=== PATIENT | male | born 1945 | race Caucasian/White ===

== ENCOUNTER 2017-06-27 09:33 | Day surgery (SDC) | payer MEDICARE, OTHER ==
[~2017-06-27] VITALS: Ht 175.3 cm; Wt 90.0 kg
[~2017-06-27 09:33] MED LIST: Hair, Skin & N1 EACH
== END 2017-06-27 12:05 | disposition home or self-care (01) ==
LOC: ORSCSDS 09:33
PROVIDERS: Internal Medicine Gastroenterology
PROC: 0DBN8ZX Excision of Sigmoid Colon, Via Natural or Artificial Opening Endoscopic, Diagnostic (ICD-10-PCS; principal; 2017-06-27 11:00)
PROC: 0DBL8ZX Excision of Transverse Colon, Via Natural or Artificial Opening Endoscopic, Diagnostic (ICD-10-PCS; principal; 2017-06-27 11:00)
PROC: 0DBK8ZX Excision of Ascending Colon, Via Natural or Artificial Opening Endoscopic, Diagnostic (ICD-10-PCS; principal; 2017-06-27 11:00)
DX: R19.4 Change in bowel habit (principal); D12.3 Benign neoplasm of transverse colon; D12.2 Benign neoplasm of ascending colon; D12.5 Benign neoplasm of sigmoid colon; K64.8 Other hemorrhoids; I49.5 Sick sinus syndrome; G47.33 Obstructive sleep apnea (adult) (pediatric); Z87.891 Personal history of nicotine dependence
CPT/HCPCS: 88305; J3010; J7120

== ENCOUNTER 2020-04-23 12:39 | Day surgery (SDC) | payer MEDICARE, OTHER ==
[~2020-04-23] VITALS: Ht 177.8 cm; Wt 92.8 kg
--- NOTE | 2020-04-23 13:08 | NUR ---
04/23/20 1308 Rosa Carlos 1 TRY RIGHT HAND VALVE 2 TRY RIGHT WRIST MISS
[2020-04-23] MEDS ORDERED: VIT1CAPS12 (13:10)
[2020-04-23] MEDS ORDERED: MAGCHL64ER (13:10)
[2020-04-23] MEDS ORDERED: BUPR75 (13:10)
[2020-04-23] MEDS ORDERED: ZINC LOZENGES (13:10)
[2020-04-23] MEDS ORDERED: MELA3 (13:10)
[2020-04-23] MEDS ORDERED: Calcium + Vita1 EACH (13:11)
== END 2020-04-23 14:55 | disposition home or self-care (01) ==
LOC: ORSCSDS 12:39
PROVIDERS: Internal Medicine Gastroenterology
PROC: 0DBM8ZX Excision of Descending Colon, Via Natural or Artificial Opening Endoscopic, Diagnostic (ICD-10-PCS; principal; 2020-04-23 14:15)
PROC: 0DBK8ZX Excision of Ascending Colon, Via Natural or Artificial Opening Endoscopic, Diagnostic (ICD-10-PCS; principal; 2020-04-23 14:15)
PROC: 0DBN8ZX Excision of Sigmoid Colon, Via Natural or Artificial Opening Endoscopic, Diagnostic (ICD-10-PCS; principal; 2020-04-23 14:15)
DX: K62.5 Hemorrhage of anus and rectum (principal); Z86.010 Personal history of colon polyps; D12.2 Benign neoplasm of ascending colon; D12.4 Benign neoplasm of descending colon; D12.5 Benign neoplasm of sigmoid colon; G47.33 Obstructive sleep apnea (adult) (pediatric); K57.30 Diverticulosis of large intestine without perforation or abscess without bleeding; K64.8 Other hemorrhoids
CPT/HCPCS: 88305; J2704; J7120

== ENCOUNTER → 2020-05-26 | Outpatient (CLI) | payer MEDICARE, OTHER ==
[~2020-05-26] MED LIST changes: +BUPR75; +Calcium + Vita1 EACH; +MAGCHL64ER; +MELA3; +VIT1CAPS12; +ZINC LOZENGES
== END ==
LOC: LAB SHORT 12:35 → PLD 12:35
DX: L82.1 Other seborrheic keratosis (principal)
CPT/HCPCS: 88305

== ENCOUNTER → 2020-11-30 | Outpatient (CLI) | payer MEDICARE, OTHER | LOC: LAB 11:12 → LAB SHORT 11:12 | DX: D48.5 Neoplasm of uncertain behavior of skin (principal); D22.9 Melanocytic nevi, unspecified; Z88.8 Allergy status to other drugs, medicaments and biological substances | CPT/HCPCS: 88305 ==

== ENCOUNTER → 2021-07-18 | Outpatient (CLI) | payer MEDICARE, OTHER | END | disposition home or self-care (01) | LOC: LAB SHORT 13:20 | DX: Z48.817 Encounter for surgical aftercare following surgery on the skin and subcutaneous tissue (principal); A49.9 Bacterial infection, unspecified | CPT/HCPCS: 87070; 87205 ==

== ENCOUNTER → 2023-08-10 | Outpatient (CLI) | payer MEDICARE, OTHER ==
[~2023-08-10] MED LIST changes: +SULTRIDS PO
[2023-08-10 13:13] LABS: BASOPHILS ABSOLUTE AUTO 0.06 K/mm3 (0.00-0.23); BASOPHILS PERCENT AUTO 1 % (0-2); EOSINOPHILS ABSOLUTE AUTO 0.14 K/mm3 (0.00-0.68); EOSINOPHILS PERCENT AUTO 2 % (0-6); Hematocrit 39.6 % (37.0-53.0); Hemoglobin 13.3 g/dL (13.5-17.5); IMMATURE GRAN ABSOLUTE AUTO 0.02 K/mm3 (0.00-0.10); IMMATURE GRAN PERCENT AUTO 0 % (0-1); LYMPHOCYTES ABSOLUTE AUTO 1.81 K/mm3 (0.84-5.20); LYMPHOCYTES PERCENT AUTO 31 % (21-46); MONOCYTES ABSOLUTE AUTO 0.52 K/mm3 (0.16-1.47); MONOCYTES PERCENT AUTO 9 % (4-13); Mean Corpuscular HGB 28.5 pg (26.0-34.0); Mean Corpuscular HGB Conc 33.6 g/dL (31.5-36.5); Mean Corpuscular Volume 85 fL (80-100); Mean Platelet Volume 10.1 fL (9.1-12.4); NEUTROPHILS ABSOLUTE AUTO 3.32 K/mm3 (1.96-9.15); NEUTROPHILS PERCENT AUTO 57 % (41-73); Platelet Count 266 K/mm3 (150-400); RDW Coefficient Variation 13.8 % (11.7-14.2); RDW Standard Deviation 42.9 fL (35.1-46.3); Red Blood Cell Count 4.66 M/mm3 (4.30-5.90); White Blood Cell Count 5.87 K/mm3 (4.00-11.30)
== END ==
LOC: LAB 11:38 → LAB SHORT 11:38
PROVIDERS: Family Medicine
DX: M70.04 Crepitant synovitis (acute) (chronic), hand (principal); C61 Malignant neoplasm of prostate
CPT/HCPCS: 85025; 85651; 86140

== ENCOUNTER 2024-11-24 07:42 | Day surgery (SDC) | payer MEDICARE, OTHER ==
[~2024-11-24] VITALS: Ht 175.3 cm; Wt 89.7 kg
[~2024-11-24 07:42] MED LIST changes: +Lidocaine HCl 2% 10 ML SDA ONE
[2024-11-24] MEDS ORDERED: CeFAZolin Sodium 2,000 MG VIAL ONE (07:53)
--- NOTE | 2024-11-24 08:29 | NUR ---
11/24/24 0829 More Olivarez 5cc's OF SOLUTION CONSISTING OF 9ML 1% LIDOCAINE WITH/EPI [id number] AND 1ML 8.4% SODIUM BICARBONATE INJECTED INTO L HAND. PT TOLERATED PROCEDURE WELL. TIME OUT PERFORMED AT BEDSIDE BY HERON IMMEDIATELY PRIOR TO INJECTION. CALL LIGHT IN PLACE
[2024-11-24 08:55] VITALS: BP 126/81
== END 2024-11-24 09:12 | disposition home or self-care (01) ==
LOC: ORSCSDS 07:42
PROVIDERS: Orthopaedic Surgery
PROC: 0LN80ZZ Release Left Hand Tendon, Open Approach (ICD-10-PCS; principal; 2024-11-24 09:30)
DX: M65.352 Trigger finger, left little finger (principal)
CPT/HCPCS: J0690; J2003; J7120